=== PATIENT | female | born 1945 | race Caucasian/White ===

== ENCOUNTER → 2017-08-19 | Outpatient (CLI) | payer MEDICARE, BC ==
--- NOTE | 2017-08-19 09:48 | PCVCIMAG ---
APPROVED REPORT Study performed: 08/19/2017 09:03:31 EXAM: Comprehensive 2D, Doppler, and color-flow Echocardiogram Patient Location: Echo lab Status: routine BSA: 1.61 HR: 61 bpmBP: 126/80 mmHg Rhythm: NSR Other Information Study Quality: Good Risk Factors: Cardiac Risk Factors: HTN Indications Pericardial effusion 2D Dimensions LVEF(%): 56.72 (>50%) IVSd: 9.35 (7-11mm) LVDd: 45.92 mm PWd: 7.27 (7-11mm) LVDs: 32.32 (25-40mm) Left Atrium: 38.80 (27-40mm) Aortic Root: 30.82 mm LV Single Plane 4CH: 65.89 % LV Single Plane 2CH: 67.04 %Shafer's LVEF: 66.46 % Biplane EF: 67.6 % Volumes Left Atrial Volume (Systole) Single Plane 4CH: 52.53 mLSingle Plane 2CH: 53.30 mL LA ESV Index: 34.00 mL/m2 Aortic Valve AoV Peak Taco.: 1.34 m/s AO Peak Gr.: 7.23 mmHgLVOT Max P.86 mmHg LVOT Max V: 0.98 m/s AI Vmax: 3.38 m/s AI [place]: 2.08 m/s2 AI PHT: 477.17 ms Mitral Valve E/A Ratio: 0.8 MV Decel. Time: 237.82 ms MV E Max Taco.: 0.89 m/s MV A Taco.: 1.07 m/s IVRT: 128.03 ms Pulmonary Valve PV Peak Taco.: 0.98 m/sPV Peak Gr.: 3.86 mmHg Pulmonary Vein P Vein S: 0.27 m/sP Vein A: 0.56 m/s P Vein D: 0.61 m/sP Vein A Dur.: 121.1 msec P Vein S/D Ratio: 0.44 Tricuspid Valve TR Peak Taco.: 2.65 m/s TR Peak Gr.: 28.10 mmHg Left Ventricle The left ventricle is normal size. There is normal LV segmental wall motion. There is normal left ventricular wall thickness. Left ventricular systolic function is normal. The left ventricular ejection fraction is within the normal range. LVEF is 60-65%. Grade I - abnormal relaxation pattern. Right Ventricle The right ventricle is normal size. The right ventricular systolic function is normal. Atria The left atrium size is normal. The right atrium size is normal. Aortic Valve The aortic valve is trileaflet, mildly sclerotic Mild aortic regurgitation. There is no aortic valvular stenosis. Mitral Valve The mitral valve is normal in structure. Trace mitral regurgitation. No evidence of mitral valve stenosis. Tricuspid Valve The tricuspid valve is normal in structure. Mild tricuspid regurgitation with PAP of 35 mmHg. Pulmonic Valve The pulmonary valve is normal in structure. There is no pulmonic valvular regurgitation. Great Vessels The aortic root is normal in size. IVC is normal in size and collapses with >50% inspiration Pericardium Small to moderate pericardial effusion around right ventricle. No hemodynamic significance and no tamponade physiology. <Conclusion> Left ventricular systolic function is normal. There is normal LV segmental wall motion. LVEF is 60-65%. Grade I diastolic dysfunction The aortic valve is trileaflet, mildly sclerotic. Mild aortic regurgitation. The mitral valve is normal in structure. Trace mitral regurgitation. Pulmonary artery pressure of 35mmHg Small to moderate pericardial effusion around right ventricle without tamponade physiology
== END | disposition home or self-care (01) ==
LOC: PCVCIMAG 09:02
PROVIDERS: ATTEND Internal Medicine
DX: I08.3 Combined rheumatic disorders of mitral, aortic and tricuspid valves (principal); I31.3 Pericardial effusion (noninflammatory); I70.0 Atherosclerosis of aorta; I10 Essential (primary) hypertension; K21.9 Gastro-esophageal reflux disease without esophagitis; E78.2 Mixed hyperlipidemia; Z86.79 Personal history of other diseases of the circulatory system; Z90.710 Acquired absence of both cervix and uterus; Z79.899 Other long term (current) drug therapy; Z88.8 Allergy status to other drugs, medicaments and biological substances
CPT/HCPCS: 93005; 93306; G0463